=== PATIENT | female | born 1985 | race Caucasian/White ===

== ENCOUNTER 2019-09-06 13:28 | Emergency (ER) | payer OTHER, SELFPAY ==
--- NOTE | ~2019-09-06 | US_ITS ---
EXAMINATION: US venous doppler [facility] DATE: 09/06/2019 15:28 INDICATION: Left lower limb pain TECHNIQUE: Grayscale ultrasound images without and with compression and Doppler ultrasound images of the left lower extremity veins were obtained. COMPARISON: None. FINDINGS: There is thrombus within one of the paired left posterior tibial veins at the calf which is only part ially compressible. The second left posterior tibial vein is patent and compressible. The visualized portions of left common femoral vein, profunda (deep) femoral vein, femoral vein, popliteal vein, per kelley veins, gastrocnemius vein and greater saphenous vein outflow are patent. IMPRESSION: 1. [id number] deep venous thrombosis within one of the posterior tibial veins at the left calf. Reviewed, dictated and finalized at location A. IMPRESSION: 1. [id number] deep venous thrombosis within one of the posterior tibial ve ins at the left calf.
[2019-09-06 13:35] VITALS: BP 113/86; PULSE 85; RESP 18; TEMP 36.4; O2SAT 100
[2019-09-06 14:15] LABS: Basophils Absolute Auto 0.1 K/mm3 (0.0-0.1); Basophils Percent Auto 0.8 % (0.2-1.2); Eosinophils Absolute Auto 0.4 K/mm3 (0-0.3); Eosinophils Percent Auto 4.2 % (0-4.4); Hemoglobin 11.8 g/dL (12.0-15.0); Immature Granulocyte Absolute 0.03 K/mm3 (0.00-0.031); Immature Granulocyte Percent A 0.4 % (0-0.5); Lymphocytes Absolute Auto 2.94 K/mm3 (0.9-3.2); Lymphocytes Percent Auto 34.5 % (18.3-44.2); Mean Corpuscular HGB Conc 31.1 g/dl (32-36); Mean Corpuscular Hemoglobin 24.3 pg (26-34); Mean Corpuscular Volume 78.4 fl (80-100); Mean Platelet Volume 8.4 fl (7.4-10.4); Monocytes Absolute Auto 0.7 K/mm3 (0.1-0.6); Monocytes Percent Auto 8.5 % (2.6-8.5); Neutrophils Absolute Auto 4.4 K/mm3 (1.3-6.7); Neutrophils Percent Auto 51.6 % (45.5-73.1); Platelet Count Result 466 k/mm3 (150-375); Red Blood Count 4.85 M/mm3 (4.2-5.4); Red Cell Distribution Width 15.8 % (11.5-14.5); White Blood Count 8.5 K/mm3 (4.5-10.0)
[2019-09-06 14:28] LABS: Alanine Aminotransferase 26 U/L (4-35); Albumin Level 4.5 g/dL (3.5-5.1); Alkaline Phosphatase 102 U/L (38-126); Aspartate Amino Transferase 22 U/L (14-36); Bilirubin,Total 0.3 mg/dL (0.2-1.3); Blood Urea Nitrogen 17 mg/dL (7-17); Calcium 9.9 mg/dL (8.4-10.2); Carbon Dioxide 28 mmol/L (22-30); Chloride 100 mmol/L (98-107); Estimated CRCL calculation 121 ml/min; Estimated Glomerular Filt Rate > 60; Glucose 93 mg/dL (65-105); Potassium 4.4 mmol/L (3.4-5.0); Sodium 135 mmol/L (137-145)
--- NOTE | 2019-09-06 15:04 | ED.GENADULT ---
HPI - General Adult General Chief complaint: Extremity Injury, Lower <Javon Guillen PA-C - Last Filed: 09/06/19 16:14> Stated complaint: leg pain <STONEY Suazo Last Filed: 09/06/19 16:14> Time Seen by Provider: 09/06/19 13:35 <STONEY Suazo Last Filed: 09/06/19 16:14> History of Present Illness HPI narrative: Patient is a 34-year-old female who presents to emergency department for evaluation of left calf pain noting history of DVT states she has had the pain for approximately 1 month. Patient notes aching pain that is constant worse with activity and movement notes history significant for DVT has been using old Lovenox and had had an ultrasound ordered but did not ever get it patient denies chest pain dyspnea URI symptoms or other complaints and on arrival is in the room in no distress <Javon Guillen PA-C - Last Filed: 09/06/19 16:14> Related Data Home medications: Home Medications Medication Instructions Recorded Confirmed escitalopram oxalate mg 09/06/19 montelukast mg 09/06/19 <Javon Guillen PA-C - Last Filed: 09/06/19 16:14> Allergies/adverse reactions: Allergies Allergy/AdvReac Type Severity Reaction Status Date / Time shellfish derived Allergy Severe Swelling Verified 09/06/19 14:25 of Lip/Tongue/Throat shrimp Allergy Severe Anaphylactic Verified 09/06/19 14:25 Shock Penicillins Allergy Unknown Other Verified 09/06/19 14:25 <STONEY Suazo Last Filed: 09/06/19 16:14> Review of Systems Review of Systems: All systems reviewed & are unremarkable except as noted in HPI and below <STONEY Suazo Last Filed: 09/06/19 16:14> [facility] Past Medical History Medical History: Medical History Anxiety Asthma Blood clotting disorder Cholestasis DVT (deep venous thrombosis) Factor V deficiency Gestational diabetes HLD (hyperlipidemia) Miscarriage PCOS (polycystic ovarian syndrome) Ulcer <STONEY Suazo Last Filed: 09/06/19 16:14> Surgical History Surgical History: Surgical History History of salpingectomy <Javon Guillen PA-C - Last Filed: 09/06/19 16:14> Social History Social History: Social History Smoking status: Former smoker Smoking end date: 04/08/02 Alcohol intake: never Substance use: never Additional living arrangements comments: w/ 3 children 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 HEAD: Normocephalic, atraumatic. EYES: PERRLA and EOMI. ENT: Nares clear, no rhinorrhea or epistaxis. Mucous membranes moist. CHEST: Clear to auscultation. No respiratory distress. No wheezes rales or rhonchi HEART: Regular rate and rhythm. No murmur heard. Normal peripheral pulses. ABDOMEN: Soft, nontender, nondistended, EXTREMITIES: Normal range of motion. No edema. Tenderness of the left calf no deformities noted SKIN: Warm, dry, no rash. NEURO: No focal deficits. Alert and oriented x3. Neurovascularly intact. Capillary refill less than 2 seconds. PSYCH: Normal mood and affect. <Javon Guillen PA-C - Last Filed: 09/06/19 16:14> Course Course Emergency Course: Patient in the room in no distress aware of case findings treatment plan and diagnosis agreeing to follow-up as directed or to return if symptoms worsen or concerns <Javon Guillen PA-C - Last Filed: 09/06/19 16:14> Vital Signs Vital signs: Vital Signs Temperature 36.4 C L 09/06/19 13:35 Pulse Rate 85 09/06/19 13:35 Respiratory Rate 18 09/06/19 13:35 Blood Pressure 113/86 09/06/19 13:35 Pulse Oximetry 100 09/06/19
== END 2019-09-06 16:32 | disposition home or self-care (01) ==
PROVIDERS: Emergency Medicine Emergency Medical Services; Emergency Provider Emergency Medicine; PCP Physician Assistant
DX: I82.442 Acute embolism and thrombosis of left tibial vein (principal); F41.9 Anxiety disorder, unspecified; J45.909 Unspecified asthma, uncomplicated; Z86.718 Personal history of other venous thrombosis and embolism; D68.2 Hereditary deficiency of other clotting factors; E78.5 Hyperlipidemia, unspecified; E28.2 Polycystic ovarian syndrome; Z87.891 Personal history of nicotine dependence
CPT/HCPCS: 36415; 80053; 85025; 93971; 99284

== ENCOUNTER 2019-11-07 21:21 | Emergency (ER) | payer OTHER, SELFPAY ==
[2019-11-07 21:24] VITALS: BP 121/75; PULSE 96; RESP 18; TEMP 36.7; O2SAT 100
--- NOTE | 2019-11-07 22:01 | ED.ALLEREA ---
HPI - Allergic Reaction General Chief complaint: Allergic Reaction Stated complaint: FACIAL SWELLING Time Seen by Provider: 11/07/19 21:52 Source: RN notes reviewed History of Present Illness HPI narrative: Patient presents emergency department from home for allergic reaction. Patient states that she has been having intermittent welts showing up in different areas of her body over the past 3 weeks. She is being worked up by her PCP for this and was stopped on her Coumadin and started on Eliquis as a believe is possibly secondary to her Coumadin patient states that she is on loratadine nightly which she took tonight. Tonight she noted area over her left cheek and decided come in for further evaluation. She states the areas are pruritic she denies any swelling of the tongue shortness of breath chest pain or any other symptoms of concern Related Data Home Medications Medication Instructions Recorded Confirmed escitalopram oxalate mg 09/06/19 montelukast mg 09/06/19 apixaban [Eliquis] mg 11/07/19 Allergies Allergy/AdvReac Type Severity Reaction Status Date / Time shellfish derived Allergy Severe Swelling Verified 11/07/19 22:17 of Lip/Tongue/Throat shrimp Allergy Severe Anaphylactic Verified 11/07/19 22:17 Shock Penicillins Allergy Unknown Other Verified 11/07/19 22:17 warfarin Allergy Rash Verified 11/07/19 22:17 Review of Systems Review of Systems: Narrative: Gen.: Denies fevers or chills ENT: Denies congestion Respiratory: Denies shortness of breath or cough CV: Denies chest pain or palpitations GI: Denies abdominal pain nausea, emesis or diarrhea denies burning, urgency, frequency or hematuria Musculoskeletal: Denies back pain or muscle pain Neuro: Denies numbness, tingling, weakness or focal weakness Skin: Reports welts Except as documented, all other systems reviewed and negative [facility] Past Medical History Medical History Anxiety Asthma Blood clotting disorder Cholestasis DVT (deep venous thrombosis) Factor V deficiency Gestational diabetes HLD (hyperlipidemia) Miscarriage PCOS (polycystic ovarian syndrome) Ulcer Social History Social History Smoking status: Former smoker Smoking end date: 04/08/02 Alcohol intake: never Substance use: never Additional living arrangements comments: w/ 3 children 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 CARDIOVASCULAR: Regular rate and rhythm without murmurs rubs or gallops. ABDOMINAL: Soft, nontender, nondistended, no rebound or guarding MUSCULOSKELETAl: Moves all extremities. No clubbing, cyanosis or edema. NEURO: Awake and alert. Following commands, speech normal, no focal deficits SKIN:: Warm, dry. Area urticaria over the left cheek PSYCHIATRIC: Normal affect/mood, Course Course Emergency Course: Patient symptoms are improved with steroids Discussed with patient results of workup and diagnosis. Discussed need for follow-up with primary care, proper use of medication, and reasons to return to the emergency department. Patient understands and agrees to current treatment plan Vital Signs Vital signs: Vital Signs Temperature 98.1 F 11/07/19 21:24 Pulse Rate 96 11/07/19 21:24 Respiratory Rate 18 11/07/19 21:24 Blood Pressure 121/75 11/07/19 21:24 Pulse Oximetry 100 11/07/19 21:24 Temperature 97.8 F 11/07/19 22:19 Pulse Rate 85 11/07/19 22:19 Respiratory Rate 16 11/07/19 22:19 Blood Pressure 122/75 11/07/19 22:19 Pulse Oximetry 98 11/07/19 22:19 MDM - Allergic R
[2019-11-07 22:19] VITALS: BP 122/75; PULSE 85; RESP 16; TEMP 36.6; O2SAT 98
[2019-11-07] MEDS: FAMOTIDINE 20 MG TABLET PO (22:25)
[2019-11-07] MEDS: predniSONE 20 MG TABLET 60 MG PO (22:25)
[2019-11-07 22:43] LABS: Basophils Absolute Auto 0.1 K/mm3 (0.0-0.1); Basophils Percent Auto 0.5 % (0.2-1.2); Eosinophils Absolute Auto 0.3 K/mm3 (0-0.3); Eosinophils Percent Auto 2.9 % (0-4.4); Hematocrit 32.6 % (37.0-47.0); Hemoglobin 10.5 g/dL (12.0-15.0); Immature Granulocyte Absolute 0.07 K/mm3 (0.00-0.031); Immature Granulocyte Percent A 0.6 % (0-0.5); Lymphocytes Absolute Auto 3.64 K/mm3 (0.9-3.2); Lymphocytes Percent Auto 31.6 % (18.3-44.2); Mean Corpuscular HGB Conc 32.2 g/dl (32-36); Mean Corpuscular Hemoglobin 25.9 pg (26-34); Mean Corpuscular Volume 80.3 fl (80-100); Mean Platelet Volume 8.4 fl (7.4-10.4); Monocytes Absolute Auto 0.8 K/mm3 (0.1-0.6); Monocytes Percent Auto 6.6 % (2.6-8.5); Neutrophils Absolute Auto 6.7 K/mm3 (1.3-6.7); Neutrophils Percent Auto 57.8 % (45.5-73.1); Platelet Count Result 484 k/mm3 (150-375); Red Blood Count 4.06 M/mm3 (4.2-5.4); Red Cell Distribution Width 15.9 % (11.5-14.5); White Blood Count 11.5 K/mm3 (4.5-10.0)
[2019-11-07 22:54] LABS: Alanine Aminotransferase 18 U/L (4-35); Albumin Level 4.3 g/dL (3.5-5.1); Alkaline Phosphatase 107 U/L (38-126); Anion Gap 12.7 mmol/L (7-16); Aspartate Amino Transferase 17 U/L (14-36); Bilirubin,Total 0.1 mg/dL (0.2-1.3); Blood Urea Nitrogen 14 mg/dL (7-17); Calcium 8.9 mg/dL (8.4-10.2); Carbon Dioxide 27 mmol/L (22-30); Chloride 100 mmol/L (98-107); Estimated CRCL calculation 102 ml/min; Estimated Glomerular Filt Rate > 60; Glucose 99 mg/dL (65-105); Potassium 3.7 mmol/L (3.4-5.0); Sodium 136 mmol/L (137-145)
[2019-11-07 23:21] VITALS: BP 119/71; PULSE 74; RESP 19; TEMP 36.8; O2SAT 100
== END 2019-11-07 23:22 | disposition home or self-care (01) ==
PROVIDERS: Emergency Provider Emergency Medicine; PCP Physician Assistant
DX: T78.40XA Allergy, unspecified, initial encounter (principal); Z79.01 Long term (current) use of anticoagulants; J45.909 Unspecified asthma, uncomplicated; F41.9 Anxiety disorder, unspecified; Z86.718 Personal history of other venous thrombosis and embolism; D68.51 Activated protein C resistance; E78.5 Hyperlipidemia, unspecified; E28.2 Polycystic ovarian syndrome; Z87.891 Personal history of nicotine dependence
CPT/HCPCS: 36415; 80053; 85025; 99283; A9270; J7512

== ENCOUNTER 2019-11-17 22:39 | Emergency (ER) | payer OTHER, SELFPAY ==
[2019-11-17 22:45] VITALS: BP 118/81; PULSE 94; RESP 18; TEMP 36.4; O2SAT 99
--- NOTE | 2019-11-17 22:59 | ED.ALLEREA ---
HPI - Allergic Reaction General Chief complaint: Allergic Reaction Stated complaint: allergic reaction x1 week Time Seen by Provider: 11/17/19 22:44 History of Present Illness HPI narrative: She has been having reccurent urticaria for the past week. She has been treating it with pepcid prednisone and zyrtec. This had been effective until tonight. Tonight she took those medications which helped with the rash, but she began developing swelling of the lower lip, which did not respond. No swelling of the throat or palate. She has beeing seeing her PCP and HemeOnc. She does not know what is causing these reactions. Related Data Home Medications Medication Instructions Recorded Confirmed escitalopram oxalate mg 09/06/19 montelukast mg 09/06/19 apixaban [Eliquis] mg 11/07/19 Allergies Allergy/AdvReac Type Severity Reaction Status Date / Time shellfish derived Allergy Severe Swelling Verified 11/17/19 22:53 of Lip/Tongue/Throat shrimp Allergy Severe Anaphylactic Verified 11/17/19 22:53 Shock Penicillins Allergy Unknown Other Verified 11/17/19 22:53 warfarin Allergy Rash Verified 11/17/19 22:53 Review of Systems Review of Systems: All systems reviewed & are unremarkable except as noted in HPI and below Constitutional: Constitutional: Denies fever(s) Cardiovascular: Cardiovascular: Denies chest pain Respiratory: Respiratory: Denies dyspnea Gastrointestinal: Gastrointestinal: Denies abdominal pain and Denies nausea [facility] Social History Social History Smoking status: Former smoker Smoking end date: 04/08/02 Alcohol intake: never Substance use: never Additional living arrangements comments: w/ 3 children 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 Eyes: Pupils: Equal, round and reactive pupils present Neck: Neck: normal visual inspection and no lymphadenopathy Chest: Chest palpation & inspection: no tenderness Resp: Effort & Inspection: normal respiratory effort Auscultation: clear to auscultation bilaterally, no rales, no rhonchi and no wheezes Cardio: Jugular venous distension: no JVD Rate: regular rate Rhythm: regular rhythm Heart sounds: no murmurs GI: Inspection: non-distended GI Palp: Yes Soft to palpation and No Tenderness to palpation present (GI) Skin: General skin exam: normal color Neuro: General: patient oriented x3 and moves all extremities Speech: normal speech Extrem: General: no edema Psych: Appearance: well kempt Affect: normal affect Course Vital Signs Vital signs: Vital Signs Temperature 36.4 C 11/17/19 22:45 Pulse Rate 94 11/17/19 22:45 Respiratory Rate 18 11/17/19 22:45 Blood Pressure 118/81 11/17/19 22:45 Pulse Oximetry 99 11/17/19 22:45 Temperature 36.4 C 11/17/19 22:45 Pulse Rate 104 H 11/18/19 02:29 Respiratory Rate 20 11/18/19 02:29 Blood Pressure 128/83 11/18/19 02:29 Pulse Oximetry 100 11/18/19 02:29 MDM - Allergic Reaction MDM Narrative Medical decision making narrative: After 2 doses of epi and 50 mg benadryl her swelling had resolved. Medical Records Attestation: I reviewed the patient's medical records. Discharge Plan Discharge Clinical Impression: Allergic reaction Qualifiers: Encounter type: initial encounter Qualified Code(s): T78.40XA - Allergy, unspecified, initial encounter Patient Disposition: Home, Self-Care Condition: Stable Instructions: Allergies (ED) Prescriptions: No Action Eliquis 5 mg tablet RF: 0 famotidine [Pepcid] 20 mg tablet 20 mg PO DAILY
[2019-11-17] MEDS: diphenhydrAMINE HCl CAP 25 MG CAPSULE 50 MG PO (23:18)
[2019-11-17] MEDS: EPINEPHrine HCL INJ 1 MG/ML AMPUL 0.3 MG IM (23:19)
[2019-11-18 00:01] VITALS: BP 149/82; PULSE 102; RESP 12; O2SAT 94
[2019-11-18] MEDS: EPINEPHrine HCL INJ 1 MG/ML AMPUL 0.3 MG IM (00:30)
[2019-11-18 01:47] VITALS: BP 112/71; PULSE 101; RESP 16; O2SAT 98
[2019-11-18 02:29] VITALS: BP 128/83; PULSE 104; RESP 20; O2SAT 100
== END 2019-11-18 02:33 | disposition home or self-care (01) ==
PROVIDERS: Emergency Provider Emergency Medicine; PCP Physician Assistant
DX: T78.40XA Allergy, unspecified, initial encounter (principal); Z87.891 Personal history of nicotine dependence; Z79.01 Long term (current) use of anticoagulants; F41.9 Anxiety disorder, unspecified; Z86.718 Personal history of other venous thrombosis and embolism; E28.2 Polycystic ovarian syndrome; D68.2 Hereditary deficiency of other clotting factors
CPT/HCPCS: 96372; 99284; A9270; J0171

== ENCOUNTER 2020-01-14 11:06 | Emergency (ER) | payer OTHER, SELFPAY ==
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
[2020-01-14 11:12] VITALS: BP 103/84; PULSE 95; RESP 20; TEMP 36.6; O2SAT 99
[2020-01-14 12:29] LABS: Basophils Absolute Auto 0.1 K/mm3 (0.0-0.1); Basophils Percent Auto 0.6 % (0.2-1.2); Eosinophils Absolute Auto 0.4 K/mm3 (0-0.3); Eosinophils Percent Auto 3.3 % (0-4.4); Hematocrit 34.3 % (37.0-47.0); Hemoglobin 10.8 g/dL (12.0-15.0); Immature Granulocyte Absolute 0.04 K/mm3 (0.00-0.031); Immature Granulocyte Percent A 0.4 % (0-0.5); Lymphocytes Absolute Auto 2.71 K/mm3 (0.9-3.2); Lymphocytes Percent Auto 25.9 % (18.3-44.2); Mean Corpuscular HGB Conc 31.5 g/dl (32-36); Mean Corpuscular Volume 82.7 fl (80-100); Mean Platelet Volume 8.6 fl (7.4-10.4); Monocytes Absolute Auto 0.9 K/mm3 (0.1-0.6); Monocytes Percent Auto 8.3 % (2.6-8.5); Neutrophils Absolute Auto 6.4 K/mm3 (1.3-6.7); Neutrophils Percent Auto 61.5 % (45.5-73.1); Platelet Count Result 414 k/mm3 (150-375); Red Blood Count 4.15 M/mm3 (4.2-5.4); Red Cell Distribution Width 15.2 % (11.5-14.5); White Blood Count 10.5 K/mm3 (4.5-10.0)
[2020-01-14 12:38] LABS: Alanine Aminotransferase 14 U/L (4-35); Albumin Level 4.1 g/dL (3.5-5.1); Alkaline Phosphatase 100 U/L (38-126); Anion Gap 8 mmol/L (8-16); Aspartate Amino Transferase 15 U/L (14-36); Bilirubin,Total 0.3 mg/dL (0.2-1.3); Blood Urea Nitrogen 13 mg/dL (7-17); Calcium 9.4 mg/dL (8.4-10.2); Carbon Dioxide 29 mmol/L (22-30); Chloride 102 mmol/L (98-107); Estimated CRCL calculation 106 ml/min; Estimated Glomerular Filt Rate > 60; Glucose 90 mg/dL (65-105); Potassium 4.2 mmol/L (3.4-5.0); Sodium 139 mmol/L (137-145)
[2020-01-14 12:38] LABS: Add Urine Microscopic? YES; Appearance Urine Cloudy (Clear); Bilirubin Urine Negative (Negative); Blood Urine Negative (Negative); Color Urine Yellow (Yellow); Glucose Urine UA Negative (Negative); Ketones Urine Negative (Negative); Leukocyte Esterase Ur Trace LEU/UL (Negative); Mucus Urine Few /lpf; Nitrate Urine Negative (Negative); Protein Urine Negative (Negative); Specific Grav Ur 1.027 (1.001-1.035); Squamous Epithelial Cell Urine Many /hpf (Few); Urobilinogen Urine Negative mg/dL (<2.0)
[2020-01-14 13:17] VITALS: BP 120/73; PULSE 65; RESP 18; O2SAT 99
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
[2020-01-14 14:20] VITALS: BP 132/70; PULSE 60; RESP 18; O2SAT 99
== END 2020-01-14 14:22 | disposition home or self-care (01) ==
PROVIDERS: Physician Assistant; Emergency Provider General Practice; PCP Physician Assistant
DX: S39.011A Strain of muscle, fascia and tendon of abdomen, initial encounter (principal); Z79.01 Long term (current) use of anticoagulants; F41.9 Anxiety disorder, unspecified; J45.909 Unspecified asthma, uncomplicated; Z86.718 Personal history of other venous thrombosis and embolism; D68.2 Hereditary deficiency of other clotting factors; E78.5 Hyperlipidemia, unspecified; E28.2 Polycystic ovarian syndrome; Z87.891 Personal history of nicotine dependence; V43.52XA Car driver injured in collision with other type car in traffic accident, initial encounter
CPT/HCPCS: 36415; 74177; 80053; 81001; 81025; 85025; 99284; Q9967

== ENCOUNTER 2020-08-13 21:44 | Emergency (ER) | payer OTHER, SELFPAY ==
[2020-08-13] VITALS (11 sets, daily range): BP systolic 132–150; BP diastolic 76–90; PULSE 81–105; RESP 15–30; TEMP 36.4; O2SAT 97–100
--- NOTE | 2020-08-13 22:06 | ED.ASTHMA ---
HPI - Asthma General Chief Complaint: Asthma Stated Complaint: sob for last hour Time Seen by Provider: 08/13/20 21:52 Source: patient, family and RN notes reviewed Mode of arrival: ambulatory Limitations: no limitations History of Present Illness HPI Narrative: Patient is 35 years old white female presents to the ED with shortness of breath on exertion after losing her albuterol inhaler 5 hours ago. History of asthma, on albuterol inhaler almost daily, lost to her inhaler 4-hour prior to arrival to the emergency room. Patient denies any chest pain, lightheadedness or dizziness. Patient had COVID-19 infection and been vaccinated few weeks ago. Patient denies any fever, chills, nausea, vomiting Related Data Home Medications Medication Instructions Recorded Confirmed escitalopram oxalate mg 09/06/19 montelukast mg 09/06/19 apixaban [Eliquis] mg 11/07/19 Allergies Allergy/AdvReac Type Severity Reaction Status Date / Time shellfish derived Allergy Severe Swelling Verified 08/13/20 22:04 of Lip/Tongue/Throat shrimp Allergy Severe Anaphylactic Verified 08/13/20 22:04 Shock Penicillins Allergy Unknown Other Verified 08/13/20 22:04 warfarin Allergy Rash Verified 08/13/20 22:04 [facility] Past Medical History Medical History (Updated 08/13/20 @ 23:15 by Estella Boss MD) Anxiety Asthma Blood clotting disorder Cholestasis DVT (deep venous thrombosis) Factor V deficiency Gestational diabetes HLD (hyperlipidemia) Miscarriage PCOS (polycystic ovarian syndrome) Ulcer Surgical History Surgical History History of salpingectomy Family History Family History Mother Hypertension Sibling Patient's brother is in good health Social History Social History Smoking status: Former smoker Smoking end date: 04/08/02 Alcohol intake: never Substance use: never Additional living arrangements comments: w/ 3 children 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- [employer] Gender identity (if verbalized by the patient): Female Exam Narrative: Exam Narrative: General appearance: Well-developed, well-nourished Skin: Normal color Head: Normocephalic, nontraumatic Eyes: Clear conjunctiva ENT: Oropharynx normal, ears normal, nose normal Neck: Supple, nontender Chest and respiratory: Few scattered wheezing bilaterally mainly on the left side Heart: Regular rate/rhythm Musculoskeletal: Normal range of motion, nontender back Neurologic: Alert and oriented ?3, [employer] is normal as tested, no gross motor deficit Course Course Emergency Course: Improved Vital Signs Vital signs: Vital Signs Temperature 36.4 C 08/13/20 21:46 Pulse Rate 88 08/13/20 21:46 Respiratory Rate 20 08/13/20 21:46 Blood Pressure 132/79 08/13/20 21:46 Pulse Oximetry 100 08/13/20 21:46 Temperature 36.4 C 08/13/20 21:46 Pulse Rate 99 08/13/20 22:01 Respiratory Rate 16 08/13/20 22:01 Blood Pressure 142/83 H 08/13/20 22:01 Pulse Oximetry 100 08/13/20 22:01 MDM - Asthma MDM Narrative Medical decision making narrative: Patient presents with exacerbation of asthma, because he lost her albuterol inhaler. Differential Diagnosis Differential diagnosis: Likely Acute exacerbation Critical Care Time Critical Care Time Critical Care Time: Yes Total Critical Care Time: 30 Discharge Plan Discharge Clinical Impression: Asthma with acute exacerbation Qualifiers: Asthma severity: mild Asthma persistence: intermittent Qualified Code(s
[2020-08-13] MEDS: predniSONE 20 MG TABLET 60 MG PO (22:09)
[2020-08-13] MEDS: ALBUTEROL SULFATE NEB 2.5 MG/0.5 ML INH 10 MG INHALATION (22:14)
--- NOTE | 2020-08-13 23:05 | PCRCNOTE ---
480 predicted Peak Flow pre bronchodilator treatment Peak flow: 180 post Peak flow: 300
== END 2020-08-13 23:23 | disposition home or self-care (01) ==
PROVIDERS: Emergency Provider Emergency Medicine; PCP Physician Assistant
DX: J45.21 Mild intermittent asthma with (acute) exacerbation (principal); F41.9 Anxiety disorder, unspecified; Z86.718 Personal history of other venous thrombosis and embolism; D68.2 Hereditary deficiency of other clotting factors; E78.5 Hyperlipidemia, unspecified; E28.2 Polycystic ovarian syndrome; Z86.16 Personal history of COVID-19; Z87.891 Personal history of nicotine dependence
CPT/HCPCS: 99283; J7512

== ENCOUNTER 2020-12-18 14:21 | Emergency (ER) | payer OTHER, SELFPAY ==
--- NOTE | ~2020-12-18 | CT_ITS ---
EXAMINATION: CT abdomen pelvis wo con DATE: 12/18/2020 15:56 INDICATION: Left flank pain TECHNIQUE: Computed tomography (CT) of the abdomen and pelvis was performed without intravenous contr ast. The dose-length product was 312.11 mGy-cm. Automated exposure control and iterative reconstructi on technique were employed. COMPARISON: CT dated 01/14/2020. FINDINGS: Lung bases are unremarkable. No significant pleural or pericardial effusion. Heart size nor mal. No significant vascular abnormality. No lymphadenopathy. The liver, spleen, pancreas, adrenal glands and left kidney are unremarkable. There are punctate nono bstructing right renal stones measuring 2 mm. No ureteral stones or hydronephrosis. Gallbladder is co ntracted. Nonobstructive bowel gas pattern. No free air or free fluid. Mild dextroscoliosis of the guille mbar spine. IMPRESSION: 1. No acute abdominal abnormality. Reviewed, dictated and finalized at location A.
[2020-12-18 14:23] VITALS: BP 127/70; PULSE 85; RESP 20; TEMP 36.9; O2SAT 100
[2020-12-18 15:29] LABS: Add Urine Microscopic? YES; Appearance Urine Clear (Clear); Bilirubin Urine Negative (Negative); Blood Urine Negative (Negative); Color Urine Yellow (Yellow); Glucose Urine UA Negative (Negative); Ketones Urine Negative (Negative); Leukocyte Esterase Ur Trace LEU/UL (Negative); Mucus Urine Rare /lpf; Nitrate Urine Negative (Negative); Protein Urine 1+ mg/dL (Negative); Specific Grav Ur 1.029 (1.001-1.035); Squamous Epithelial Cell Urine Moderate /hpf (Few); Urobilinogen Urine Negative mg/dL (<2.0); WBC Urine 0-3 /hpf
[2020-12-18] MEDS: KETOROLAC 15 MG/ML VIAL (*BKC) IV PUSH (15:46)
[2020-12-18 15:59] LABS: Basophils Absolute Auto 0.1 K/mm3 (0.0-0.1); Basophils Percent Auto 0.7 % (0.2-1.2); Eosinophils Absolute Auto 0.5 K/mm3 (0-0.3); Eosinophils Percent Auto 5.3 % (0-4.4); Hematocrit 33.6 % (37.0-47.0); Hemoglobin 10.4 g/dL (12.0-15.0); Immature Granulocyte Absolute 0.03 K/mm3 (0.00-0.031); Immature Granulocyte Percent A 0.3 % (0-0.5); Lymphocytes Absolute Auto 2.77 K/mm3 (0.9-3.2); Lymphocytes Percent Auto 31.8 % (18.3-44.2); Mean Corpuscular Hemoglobin 25.7 pg (26-34); Mean Platelet Volume 8.4 fl (7.4-10.4); Monocytes Absolute Auto 0.7 K/mm3 (0.1-0.6); Monocytes Percent Auto 7.5 % (2.6-8.5); Neutrophils Absolute Auto 4.8 K/mm3 (1.3-6.7); Neutrophils Percent Auto 54.4 % (45.5-73.1); Platelet Count Result 393 k/mm3 (150-375); Red Blood Count 4.05 M/mm3 (4.2-5.4); White Blood Count 8.7 K/mm3 (4.5-10.0)
[2020-12-18 16:09] LABS: Alanine Aminotransferase 24 U/L (4-35); Albumin Level 4.1 g/dL (3.5-5.1); Alkaline Phosphatase 94 U/L (38-126); Anion Gap 6 mmol/L (8-16); Aspartate Amino Transferase 24 U/L (14-36); Bilirubin,Total 0.2 mg/dL (0.2-1.3); Blood Urea Nitrogen 13 mg/dL (7-17); Carbon Dioxide 28 mmol/L (22-30); Chloride 104 mmol/L (98-107); Estimated CRCL calculation 108 ml/min; Estimated Glomerular Filt Rate > 60; Glucose 112 mg/dL (65-110); Potassium 3.8 mmol/L (3.4-5.0); Sodium 138 mmol/L (137-145)
--- NOTE | 2020-12-18 17:12 | ED.BACK ---
HPI - Back Pain/Injury General Chief Complaint: Back Pain/Injury Stated Complaint: back pain/sore throat Time Seen by Provider: 12/18/20 14:45 Source: patient Mode of arrival: ambulatory Limitations: no limitations History of Present Illness HPI Narrative: Patient presents with 2 to 3 days of left-sided back pain. Patient states that the other day she noticed urgency but does not have it today. Patient reports also noticing increased frequency. Patient states she has a history of UTIs. Patient also complains of a sore throat. Patient denies fever, chills, nausea, vomiting, diarrhea. Patient reports tubal ligation. Related Data Home Medications Medication Instructions Recorded Confirmed escitalopram oxalate 10 mg PO DAILY 09/06/19 apixaban [Eliquis] 5 mg PO BID 11/07/19 12/18/20 Allergies Allergy/AdvReac Type Severity Reaction Status Date / Time shellfish derived Allergy Severe Swelling Verified 12/18/20 14:27 of Lip/Tongue/Throat shrimp Allergy Severe Anaphylactic Verified 12/18/20 14:27 Shock Penicillins Allergy Unknown Other Verified 12/18/20 14:27 warfarin Allergy Rash Verified 12/18/20 14:27 Review of Systems Review of Systems: CONSTITUTIONAL: Denies fever, chills, or sweats. EYES: Denies visual changes, redness, or discharge. ENT: Reports sore throat denies rhinorrhea, congestion, or otalgia. CARDIOVASCULAR: Denies chest pain, palpitations, or edema. RESPIRATORY: Denies cough or dyspnea. GASTROINTESTINAL: Denies abdominal pain, nausea, vomiting, or diarrhea. GENITOURINARY: Denies dysuria or hematuria. SKIN: Denies rash or itching. MUSCULOSKELETAL: Reports left flank and left low back pain denies joint pain, or myalgia. NEUROLOGIC: Denies headache, numbness, dizziness, or weakness. PSYCHIATRIC: Denies anxiety or depression. [facility] Past Medical History Medical History (Updated 12/18/20 @ 16:34 by Hannah Alexis PA-C) Anxiety Asthma Blood clotting disorder Cholestasis DVT (deep venous thrombosis) Factor V deficiency Gestational diabetes HLD (hyperlipidemia) Miscarriage PCOS (polycystic ovarian syndrome) Ulcer Surgical History Surgical History History of salpingectomy Family History Family History Mother Hypertension Sibling Patient's brother is in good health Social History Social History Smoking status: Former smoker Smoking end date: 04/08/02 Alcohol intake: never Substance use: never Additional living arrangements comments: w/ 3 children 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 HEAD: Normocephalic, atraumatic. EYES: PERRLA and EOMI. ENT: Nares clear, no rhinorrhea or epistaxis. Mucous membranes moist. Oropharynx without tonsillar hypertrophy exudate or other lesions. Bilateral TMs pearly [place] nonbulging NECK: Supple. No adenopathy or masses. CHEST: Clear to auscultation. No respiratory distress. No wheezes rales or rhonchi. Left CVA tenderness with percussion HEART: Regular rate and rhythm. No murmur heard. Normal peripheral pulses. ABDOMEN: Soft, nontender, nondistended, normal active bowel sounds. EXTREMITIES: Normal range of motion. No edema. SKIN: Warm, dry, no rash. NEURO: No focal deficits. Alert and oriented x3. PSYCH: Normal mood and affect. Course Vital Signs Vital signs: Vital Signs Temperature 98.5 F 12/18/20 14:23 Pulse Rate 85 12/18/20 14:23 Respiratory Rate 12/18/20 14:23 Blood Pressure 127/70 12/18/20 14:23 Pulse Oximetry 100 12/18/20 14:23 Temperature 98.5 F 12/18/20 14:23 Pulse Rate 85 12/18/20 14:23 Respiratory Rate 20 12/18/20 14:23 Blood Pressure 127/7
[2020-12-18 17:45] VITALS: BP 123/80; PULSE 65; RESP 16; O2SAT 99
== END 2020-12-18 17:47 | disposition home or self-care (01) ==
PROVIDERS: Physician Assistant; Emergency Provider Emergency Medicine; PCP Physician Assistant
DX: S39.012A Strain of muscle, fascia and tendon of lower back, initial encounter (principal); F41.9 Anxiety disorder, unspecified; D68.51 Activated protein C resistance; E78.5 Hyperlipidemia, unspecified; E28.2 Polycystic ovarian syndrome; Z87.440 Personal history of urinary (tract) infections; Z98.51 Tubal ligation status; Z86.32 Personal history of gestational diabetes; Z87.09 Personal history of other diseases of the respiratory system; Z86.718 Personal history of other venous thrombosis and embolism; Z87.891 Personal history of nicotine dependence; Y33.XXXA Other specified events, undetermined intent, initial encounter
CPT/HCPCS: 36415; 74176; 80053; 81001; 81025; 85025; 87081; 87880; 96374; 99284; J1885

== ENCOUNTER 2021-08-23 09:32 | Emergency (ER) | payer OTHER, SELFPAY ==
[2021-08-23 09:51] VITALS: BP 140/83; PULSE 76; RESP 18; TEMP 36.2; O2SAT 100
--- NOTE | 2021-08-23 10:19 | ED.GENADULT ---
HPI - General Adult General Chief complaint: Unspecified Stated complaint: sore throat History of Present Illness HPI narrative: 36-year-old female presents the emergency room for evaluation of sore throat and left ear pain, which is been present intermittently for last 2 weeks. Patient states that she is frequently clearing her throat and has an occasional cough. Patient denies fever, malaise, body aches. Patient states he had a history of asthma and seasonal allergies. Reports taking Tylenol with no relief of symptoms. Related Data Home Medications Medication Instructions Recorded Confirmed escitalopram oxalate 10 mg PO DAILY 09/06/19 apixaban [Eliquis] 5 mg PO BID 11/07/19 12/18/20 Allergies Allergy/AdvReac Type Severity Reaction Status Date / Time shellfish derived Allergy Severe Swelling Verified 12/18/20 14:27 of Lip/Tongue/Throat shrimp Allergy Severe Anaphylactic Verified 12/18/20 14:27 Shock Penicillins Allergy Unknown Other Verified 12/18/20 14:27 warfarin Allergy Rash Verified 12/18/20 14:27 Review of Systems Review of Systems: CONSTITUTIONAL: Denies fever, chills, or sweats. EYES: Denies visual changes, redness, or discharge. ENT: Reports sinus congestion, postnasal drip, left ear pain, sore throat CARDIOVASCULAR: Denies chest pain, palpitations, or edema. RESPIRATORY: Denies cough or dyspnea. GASTROINTESTINAL: Denies abdominal pain, nausea, vomiting, or diarrhea. GENITOURINARY: Denies dysuria or hematuria. SKIN: Denies rash or itching. MUSCULOSKELETAL: Denies back pain, joint pain, or myalgia. NEUROLOGIC: Denies headache, numbness, dizziness, or weakness. PSYCHIATRIC: Denies anxiety or depression. [facility] Past Medical History Medical History (Updated 08/23/21 @ 10:30 by Shiva Villegas APRN) Anxiety Asthma Blood clotting disorder Cholestasis DVT (deep venous thrombosis) Factor V deficiency Gestational diabetes HLD (hyperlipidemia) Miscarriage PCOS (polycystic ovarian syndrome) Ulcer Surgical History Surgical History History of salpingectomy Family History Family History Mother Hypertension Sibling Patient's brother is in good health Social History Social History Smoking status: Former smoker Smoking end date: 04/08/02 Alcohol intake: never Substance use: never Additional living arrangements comments: w/ 3 children 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 HEAD: Normocephalic, atraumatic. EYES: PERRLA and EOMI. ENT: Nares clear, no rhinorrhea or epistaxis. Mucous membranes moist. Oropharynx without tonsillar hypertrophy exudate or other lesions. Bilateral TMs pearly alcala nonbulging with clear effusion NECK: Supple. No adenopathy or masses. No carotid bruits or JVD CHEST: Clear to auscultation. No respiratory distress. No wheezes rales or rhonchi HEART: Regular rate and rhythm. No murmur heard. Normal peripheral pulses. EXTREMITIES: Normal range of motion. No edema. SKIN: Warm, dry, no rash. NEURO: No focal deficits. Alert and oriented x3. PSYCH: Normal mood and affect. Course Vital Signs Vital signs: Vital Signs Temperature 36.2 C L 08/23/21 09:51 Pulse Rate 76 08/23/21 09:51 Respiratory Rate 18 08/23/21 09:51 Blood Pressure 140/83 08/23/21 09:51 Pulse Oximetry 100 08/23/21 09:51 Temperature 36.2 C L 08/23/21 09:51 Pulse Rate 76 08/23/21 09:51 Respiratory Rate 18 08/23/21 09:51 Blood Pressure 140/83 08/23/21 09:51 Pulse Oximetry 100 08/23/21 09:51 Medical Decision Making Vital Signs Vital Signs: Vital Signs Temperature 36.2 C L 08/23/21 09:51 Pulse Rate 76
== END 2021-08-23 10:47 | disposition home or self-care (01) ==
LOC: ANHED 10:31
PROVIDERS: Emergency Provider Nurse Practitioner Family; PCP Physician Assistant
DX: B34.9 Viral infection, unspecified (principal); E78.5 Hyperlipidemia, unspecified; Z79.01 Long term (current) use of anticoagulants; Z86.718 Personal history of other venous thrombosis and embolism; Z87.891 Personal history of nicotine dependence
CPT/HCPCS: 87081; 87880; 99283

== ENCOUNTER 2021-10-02 17:39 | Emergency (ER) | payer OTHER, SELFPAY ==
--- NOTE | ~2021-10-02 | US_ITS ---
EXAMINATION: US venous doppler LE RT DATE: 10/02/2021 19:04 INDICATION: Possible DVT . TECHNIQUE: Grayscale images without and with compression and Doppler images of the right lower extrem ity veins were obtained. COMPARISON: None FINDINGS: The right common femoral vein, profunda (deep) femoral vein, femoral vein, popliteal vein, peroneal v ein, posterior tibial veins, gastrocnemius vein, lesser saphenous, and greater saphenous vein are pat ent. IMPRESSION: 1. Patent right lower extremity veins. No evidence of deep venous thrombosis. Reviewed, dictated and finalized at location K.
--- NOTE | ~2021-10-02 | US_ITS ---
EXAMINATION: US venous doppler [facility] DATE: 10/02/2021 19:04 INDICATION: Pain in the left lower limb, possible DVT. TECHNIQUE: Grayscale images without and with compression and Doppler images of the left lower extremi ty veins were obtained. COMPARISON: None FINDINGS: The left common femoral vein, profunda femoral vein, femoral vein, popliteal vein, peroneal vein, pos terior tibial veins, gastrocnemius vein, lesser saphenous, and greater saphenous vein are patent. IMPRESSION: 1. Patent left lower extremity veins. No evidence of deep venous thrombosis. Reviewed, dictated and finalized at location K.
[2021-10-02 17:42] VITALS: BP 152/99; PULSE 103; RESP 18; TEMP 36.6; O2SAT 100
--- NOTE | 2021-10-02 19:33 | ED.LOWEXIN ---
HPI - Extremity Injury (Lower) General Chief Complaint: Extremity Injury, Lower Stated Complaint: Bilateral Leg Pain, US negative today Time Seen by Provider: 10/02/21 18:13 History of Present Illness HPI Narrative: 36-year-old female presented the emergency room for evaluation of bilateral calf pain. Patient states she has a history of DVTs, and is currently on Eliquis. Patient states that she was seen at an outside emergency room earlier today and had an ultrasound done of both legs and was found to be negative for DVT. Patient states that she presents here for a second opinion. Patient does endorse heavy use of soda, and does not drink sufficient amounts of water. Related Data Home Medications Medication Instructions Recorded Confirmed escitalopram oxalate 10 mg tablet 10 mg PO DAILY 09/06/19 apixaban 5 mg tablet (Eliquis) 5 mg PO BID 11/07/19 12/18/20 Allergies Allergy/AdvReac Type Severity Reaction Status Date / Time shellfish derived Allergy Severe Swelling Verified 10/02/21 17:44 of Lip/Tongue/Throat shrimp Allergy Severe Anaphylactic Verified 10/02/21 17:44 Shock Penicillins Allergy Unknown Other Verified 10/02/21 17:44 warfarin Allergy Rash Verified 10/02/21 17:44 Review of Systems Review of Systems: CONSTITUTIONAL: Denies fever, chills, or sweats. EYES: Denies visual changes, redness, or discharge. ENT: Denies rhinorrhea, congestion, sore throat, or otalgia. CARDIOVASCULAR: Denies chest pain, palpitations, or edema. RESPIRATORY: Denies cough or dyspnea. GASTROINTESTINAL: Denies abdominal pain, nausea, vomiting, or diarrhea. GENITOURINARY: Denies dysuria or hematuria. SKIN: Denies rash or itching. MUSCULOSKELETAL: Denies back pain, joint pain, or myalgia. NEUROLOGIC: Denies headache, numbness, dizziness, or weakness. PSYCHIATRIC: Denies anxiety or depression. [facility] Past Medical History Medical History (Updated 10/02/21 @ 19:39 by Shiva Villegas APRN) Anxiety Asthma Blood clotting disorder Cholestasis DVT (deep venous thrombosis) Factor V deficiency Gestational diabetes HLD (hyperlipidemia) Miscarriage PCOS (polycystic ovarian syndrome) Ulcer Surgical History Surgical History History of salpingectomy Family History Family History Mother Hypertension Sibling Patient's brother is in good health Social History Social History Smoking status: Former smoker Smoking end date: 04/08/02 Alcohol intake: never Substance use: never Additional living arrangements comments: w/ 3 children 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 HEAD: Normocephalic, atraumatic. EYES: Conjunctivae normal, PERRLA and EOMI. ENT: External nose normal, Nares clear, no rhinorrhea or epistaxis. Mucous membranes moist. Oropharynx without tonsillar hypertrophy exudate or other lesions. External ears normal, bilateral TMs normal bilaterally NECK: Supple. No meningeal signs. No adenopathy or masses. No carotid bruits or JVD CHEST: Clear to auscultation. No respiratory distress. No wheezes rales or rhonchi. No tenderness. HEART: Regular rate and rhythm. No murmur heard. Normal peripheral pulses. BACK: No CVA tenderness; No cervical/thoracic/lumbar tenderness, step-offs, bony abnormality; FROM EXTREMITIES: Tenderness noted to bilateral calfs with noted muscle spasms. Calves are equal bilaterally. No ecchymosis or cyanosis noted. Bilateral lower pulses are present and bounding. Negative Homans' sign bilaterally SKIN: Warm, dry, no rash. No noted wounds NEURO: No focal deficits. Alert and oriented x3. MAEW. CN's II-XI intact bilaterally, normal
== END 2021-10-02 20:25 | disposition home or self-care (01) ==
PROVIDERS: Emergency Provider Nurse Practitioner Family; PCP Physician Assistant
DX: S86.919A Strain of unspecified muscle(s) and tendon(s) at lower leg level, unspecified leg, initial encounter (principal); J45.909 Unspecified asthma, uncomplicated; D68.2 Hereditary deficiency of other clotting factors; E78.5 Hyperlipidemia, unspecified; E28.2 Polycystic ovarian syndrome; F41.9 Anxiety disorder, unspecified; Z86.718 Personal history of other venous thrombosis and embolism; Z79.01 Long term (current) use of anticoagulants; Z87.891 Personal history of nicotine dependence; X58.XXXA Exposure to other specified factors, initial encounter
CPT/HCPCS: 93971; 99284

== ENCOUNTER 2021-11-10 08:59 | Emergency (ER) | payer OTHER, SELFPAY ==
--- NOTE | ~2021-11-10 | CT_ITS ---
EXAMINATION: CT soft tissue neck w con DATE: 11/10/2021 10:01 INDICATION: Throat pain. Hoarseness. TECHNIQUE: Computed tomography (CT) of the neck was performed with 75 mL Omnipaque-350 intravenous co ntrast. Automated exposure control and iterative reconstruction technique were employed. The dose-maciej gth product was 500.69 mGy-cm. COMPARISON: None FINDINGS: The adenoids are normal. There is mild enlargement of the palatine tonsils. The epiglottis is normal. There are no pathologically enlarged lymph nodes. There is mild cervical spondylosis. IMPRESSION: 1. Mild enlargement of the palatine tonsils. No abscess. Reviewed, dictated and finalized at location A.
[2021-11-10 09:05] VITALS: BP 151/91; PULSE 96; RESP 16; TEMP 36.6; O2SAT 98
[2021-11-10 09:32] LABS: Basophils Absolute Auto 0.1 K/mm3 (0.0-0.1); Basophils Percent Auto 0.6 % (0.2-1.2); Eosinophils Absolute Auto 0.3 K/mm3 (0-0.3); Eosinophils Percent Auto 2.7 % (0-4.4); Hematocrit 35.1 % (37.0-47.0); Hemoglobin 10.9 g/dL (12.0-15.0); Immature Granulocyte Absolute 0.03 K/mm3 (0.00-0.031); Immature Granulocyte Percent A 0.3 % (0-0.5); Lymphocytes Absolute Auto 2.61 K/mm3 (0.9-3.2); Lymphocytes Percent Auto 25.3 % (18.3-44.2); Mean Corpuscular HGB Conc 31.1 g/dl (32-36); Mean Corpuscular Hemoglobin 25.9 pg (26-34); Mean Corpuscular Volume 83.4 fl (80-100); Mean Platelet Volume 8.3 fl (7.4-10.4); Monocytes Absolute Auto 0.7 K/mm3 (0.1-0.6); Monocytes Percent Auto 6.3 % (2.6-8.5); Neutrophils Absolute Auto 6.7 K/mm3 (1.3-6.7); Neutrophils Percent Auto 64.8 % (45.5-73.1); Platelet Count Result 442 k/mm3 (150-375); Red Blood Count 4.21 M/mm3 (4.2-5.4); Red Cell Distribution Width 16.3 % (11.5-14.5); White Blood Count 10.3 K/mm3 (4.5-10.0)
[2021-11-10 09:44] LABS: Alanine Aminotransferase 36 U/L (6-35); Albumin Level 4.6 g/dL (3.5-5.1); Alkaline Phosphatase 96 U/L (38-126); Anion Gap 13 mmol/L (8-16); Aspartate Amino Transferase 25 U/L (14-36); Bilirubin,Total 0.6 mg/dL (0.2-1.3); Blood Urea Nitrogen 6 mg/dL (7-17); Calcium 8.8 mg/dL (8.4-10.2); Carbon Dioxide 23 mmol/L (22-30); Chloride 102 mmol/L (98-107); Estimated CRCL calculation 105 ml/min; Estimated Glomerular Filt Rate > 60; Glucose 138 mg/dL (65-110); Potassium 3.6 mmol/L (3.4-5.0); Sodium 138 mmol/L (137-145)
--- NOTE | 2021-11-10 09:54 | PC.NURSE ---
Pt to CT scan in wheelchair.
--- NOTE | 2021-11-10 10:47 | ED.GENADULT ---
HPI - General Adult General Chief complaint: Dental/Oral Stated complaint: hoarse voice x 2months Time Seen by Provider: 11/10/21 09:01 Source: RN notes reviewed History of Present Illness HPI narrative: Patient presents emergency room from home for hoarse voice. Patient states symptoms been ongoing for 3 to 4 months. She states that 1 morning she woke up with a hoarse voice she states that she is able to swallow she denies any fevers or chills rhinorrhea states that time she will have ear pain but denies any current ear pain she denies any pain with swallowing denies any chest pain or shortness of breath. States has been to her PCP and has been on steroids in the past and that does help briefly and then returns states that she is try to get into an ENT but cannot get in until January she states there is concerned that there could be polyps in her throat after talking to her PCP and she came to the ER for CT scan of her neck Related Data Home Medications Medication Instructions Recorded Confirmed escitalopram oxalate 10 mg tablet 10 mg PO DAILY 09/06/19 apixaban 5 mg tablet (Eliquis) 5 mg PO BID 11/07/19 12/18/20 Allergies Allergy/AdvReac Type Severity Reaction Status Date / Time shellfish derived Allergy Severe Swelling Verified 10/02/21 17:44 of Lip/Tongue/Throat shrimp Allergy Severe Anaphylactic Verified 10/02/21 17:44 Shock Penicillins Allergy Unknown Other Verified 10/02/21 17:44 warfarin Allergy Rash Verified 10/02/21 17:44 Review of Systems Review of Systems: Gen.: Denies fevers or chills ENT: D see HPI Respiratory: Denies shortness of breath or cough CV: Denies chest pain or palpitations GI: Denies abdominal pain nausea, emesis Musculoskeletal: Denies back pain or muscle pain Neuro: Denies numbness, tingling, weakness or focal weakness Skin: Denies rash Except as documented, all other systems reviewed and negative [facility] Past Medical History Medical History (Updated 11/10/21 @ 10:50 by Be Burkett DO) Anxiety Asthma Blood clotting disorder Cholestasis DVT (deep venous thrombosis) Factor V deficiency Gestational diabetes HLD (hyperlipidemia) Miscarriage PCOS (polycystic ovarian syndrome) Ulcer Surgical History Surgical History History of salpingectomy Family History Family History Mother Hypertension Sibling Patient's brother is in good health Social History Social History Smoking status: Former smoker Smoking end date: 04/08/02 Alcohol intake: never Substance use: never Additional living arrangements comments: w/ 3 children 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 CARDIOVASCULAR: Regular rate and rhythm without murmurs rubs or gallops. ABDOMINAL: Soft, nontender, nondistended, no rebound or guarding MUSCULOSKELETAl: Moves all extremities. No clubbing, cyanosis or edema. NEURO: Awake and alert. Following commands, speech normal, no focal deficits SKIN:: Warm, dry. No rashes lesions or abrasions PSYCHIATRIC: Normal affect/mood, Course Course Emergency Course: Discussed with patient results of workup and diagnosis. Discussed need for follow-up with primary care, proper use of medication, and reasons to return to the emergency department. Patient understands and agrees to current treatment plan discuss
[2021-11-10 10:57] VITALS: BP 140/87; PULSE 91; RESP 17; O2SAT 100
== END 2021-11-10 10:59 | disposition home or self-care (01) ==
PROVIDERS: Emergency Provider Emergency Medicine; PCP Physician Assistant
DX: J04.0 Acute laryngitis (principal); J45.909 Unspecified asthma, uncomplicated; D68.2 Hereditary deficiency of other clotting factors; E78.5 Hyperlipidemia, unspecified; E28.2 Polycystic ovarian syndrome; F41.9 Anxiety disorder, unspecified; Z86.718 Personal history of other venous thrombosis and embolism; Z79.01 Long term (current) use of anticoagulants; Z87.891 Personal history of nicotine dependence
CPT/HCPCS: 36415; 70491; 80053; 85025; 87081; 87880; 99284; Q9967

== ENCOUNTER 2022-03-04 19:26 | Emergency (ER) | payer OTHER, SELFPAY ==
--- NOTE | ~2022-03-04 | XR_ITS ---
EXAMINATION: XR chest 2V Exam Date/Time: 03/04/2022 20:10 [facility]MER HISTORY: sob X TODAY, HX ASTHMA Comparison: 05/13/2014. RESULT: Lines, tubes, and devices: None. Lungs and pleura: Clear. Cardiomediastinal silhouette: Stable. Other: No acute osseous or upper abdominal finding. IMPRESSION: No acute cardiopulmonary process. Reviewed, dictated and finalized at location K. NG TRIMMER
[2022-03-04 19:29] VITALS: BP 154/91; PULSE 92; RESP 20; TEMP 36.9; O2SAT 100
[2022-03-04 19:55] VITALS: O2SAT 99
--- NOTE | 2022-03-04 19:58 | ED.ASTHMA ---
HPI - Asthma General Chief Complaint: Asthma Stated Complaint: short of breath, asthma Time Seen by Provider: 03/04/22 19:46 Source: patient, RN notes reviewed and old records reviewed Mode of arrival: ambulatory Limitations: no limitations History of Present Illness HPI Narrative: This is a 36 year old female with history of asthma who presents for evaluation of asthma exacerbation. She states her asthma has been bothering her for 1 month, and she has been using her albuterol inhaler twice a day. She reports she ran out of her inhaler 4 hours ago, and she was doing fine prior. She is short of breath and she needs another albuterol inhaler. She denies worsening cough, fever, chest pain, leg swelling, calf pain. She has been around children with cold symptoms. She has been taking her eliquis as prescribed but she took her last dose of eliquis this morning. She was unable to make it to pharmacy before it closed to hand picker her refill, and she will need to take her night time dose. Related Data Home Medications Medication Instructions Recorded Confirmed escitalopram oxalate 10 mg tablet 10 mg PO DAILY 09/06/19 apixaban 5 mg tablet (Eliquis) 5 mg PO BID 11/07/19 12/18/20 Allergies Allergy/AdvReac Type Severity Reaction Status Date / Time shellfish derived Allergy Severe Swelling Verified 03/04/22 19:57 of Lip/Tongue/Throat shrimp Allergy Severe Anaphylactic Verified 03/04/22 19:57 Shock Penicillins Allergy Unknown Other Verified 03/04/22 19:57 warfarin Allergy Rash Verified 03/04/22 19:57 Review of Systems Review of Systems: All systems reviewed & are unremarkable except as noted in HPI and below Constitutional: Constitutional: Denies chills and Denies fatigue ENT: Denies nasal congestion and Denies sore throat Cardiovascular: Cardiovascular: Denies chest pain, Denies rapid heart rate and Denies radiating jaw, neck or arm pain Respiratory: Respiratory: Denies chest congestion, Denies cough and Reports wheezing Gastrointestinal: Gastrointestinal: Denies abdominal pain, Denies nausea and Denies vomiting [facility] Past Medical History Medical History (Updated 03/04/22 @ 22:08 by Chelle Harley MD) Anxiety Asthma Blood clotting disorder Cholestasis DVT (deep venous thrombosis) Factor V deficiency Gestational diabetes HLD (hyperlipidemia) Miscarriage PCOS (polycystic ovarian syndrome) Ulcer Surgical History Surgical History History of salpingectomy Family History Family History Mother Hypertension Sibling Patient's brother is in good health Social History Social History Smoking status: Former smoker Smoking end date: 04/08/02 Alcohol intake: never Substance use: never Additional living arrangements comments: w/ 3 children 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- [employer] Gender identity (if verbalized by the patient): Female Exam Const: General: no acute distress and alert Nutritional Appearance: well nourished Orientation/consciousness: patient oriented x3 Limitations: no limitations HENMT: Head: normal to inspection Eyes: EOM: EOMs intact bilaterally Chest: Chest palpation & inspection: normal inspection of the chest Resp: Effort & Inspection: normal respiratory effort, no retractions and no use of accessory muscles Auscultation: wheezes Cardio: Rate: regular rate Rhythm: regular rhythm Heart sounds: no murmurs GI: GI Palp: Yes Soft to palpation, No Tenderness to palpation present (GI) and No Guarding due to palpation present (GI) Auscultation: normal bowel sounds Skin: General skin exam: normal color Lesions: no lesions Wounds: no wounds Neuro: General: patient oriented x3, moves all extremities and CN's II-XI intact bilaterally Extrem: General: normal to inspecti
[2022-03-04] MEDS: predniSONE 20 MG TABLET 60 MG PO (20:25)
[2022-03-04] MEDS: APIXABAN 5 MG TABLET PO (20:26)
[2022-03-04 20:54] LABS: Influenza A QL RT-PCR Negative (Negative); Influenza B QL RT-PCR Negative (Negative); RSV RNA, RT-PCR Negative (Negative); SARS-CoV-2 RNA PCR Negative
--- NOTE | 2022-03-04 21:42 | PC.NURSE ---
Respiratory at bedside
[2022-03-04 21:43] VITALS: PULSE 98; RESP 20; O2SAT 97
[2022-03-04] MEDS: ALBUTEROL SULFATE (*SP) AEROSOL 1 PUFF 4 PUFF INHALATION (21:48)
[2022-03-04 22:15] VITALS: BP 132/87; PULSE 88; RESP 19; O2SAT 100
== END 2022-03-04 22:15 | disposition home or self-care (01) ==
PROVIDERS: Emergency Provider General Practice; PCP Physician Assistant
DX: J45.901 Unspecified asthma with (acute) exacerbation (principal); F41.9 Anxiety disorder, unspecified; D68.2 Hereditary deficiency of other clotting factors; E78.5 Hyperlipidemia, unspecified; E28.2 Polycystic ovarian syndrome; Z86.718 Personal history of other venous thrombosis and embolism; Z79.01 Long term (current) use of anticoagulants; Z87.891 Personal history of nicotine dependence
CPT/HCPCS: 71046; 87637; 99283; A9270; J7512

== ENCOUNTER 2023-01-16 16:34 | Emergency (ER) | payer OTHER, SELFPAY ==
--- NOTE | ~2023-01-16 | CT_ITS ---
EXAMINATION: CT pelvis w con INDICATION: Left hip pain and swelling after fall TECHNIQUE: Computed tomographic images of the pelvis was obtained after the administration of 100 cc of Omnipaque 350 intravenous contrast. The dose-length product (DLP) was 601.59 mGy-cm. Automated exp osure control and iterative reconstruction technique were employed. COMPARISON: None FINDINGS: Bone alignment is normal. There is no fracture. There is a large amount of bruising in the left gluteal fat. There are no pathologically enlarged pelvic lymph nodes. No dilated loops of bowel are evident. IMPRESSION: 1. Left gluteal bruising. Reviewed, dictated and finalized at location F. IMPRESSION: 1. Left gluteal bruising.
[2023-01-16 16:35] VITALS: BP 129/80; PULSE 100; RESP 18; TEMP 36.9; O2SAT 99
--- NOTE | 2023-01-16 16:55 | ED.FALL ---
HPI - Fall General Chief Complaint: Fall Stated Complaint: fall down stairs Time Seen by Provider: 01/16/23 16:55 History of Present Illness HPI Narrative: Patient is a 37-year-old female with history of DVT, on Eliquis here after a fall. She states around 12:00 p.m. this afternoon she was wearing socks and slipped and fell down 5 wooden steps landing on her buttocks. She states she had some immediate pain, specifically in her left buttock. She Initially went to an outside emergency department, waited several hours in the emergency department without being seen and she left and came into this emergency department. She states that she took for ibuprofen in route to this emergency department for pain and swelling. Currently complaining of pain in her left buttock and swelling. She denies any other injuries. She denies falling backwards, hitting her back or head. She denies loss of consciousness. She denies any prodrome of chest pain or shortness of breath. She denies any pain in her upper lower extremities. Related Data Home Medications Medication Instructions Recorded Confirmed escitalopram oxalate 10 mg tablet 10 mg PO DAILY 09/06/19 apixaban 5 mg tablet (Eliquis) 5 mg PO BID 11/07/19 12/18/20 Allergies Allergy/AdvReac Type Severity Reaction Status Date / Time shellfish derived Allergy Severe Swelling Verified 01/16/23 16:35 of Lip/Tongue/Throat shrimp Allergy Severe Anaphylactic Verified 01/16/23 16:35 Shock Penicillins Allergy Unknown Other Verified 01/16/23 16:35 warfarin Allergy Rash Verified 01/16/23 16:35 Review of Systems Review of Systems: All systems reviewed & are unremarkable except as noted in HPI and below PMFSH Past Medical History Medical History (Updated 01/16/23 @ 19:18 by Mago Grace MD) Anxiety Asthma Blood clotting disorder Cholestasis DVT (deep venous thrombosis) Factor V deficiency Gestational diabetes HLD (hyperlipidemia) Miscarriage PCOS (polycystic ovarian syndrome) Ulcer Surgical History Surgical History History of salpingectomy Family History Family History Mother Hypertension Sibling Patient's brother is in good health Social History Social History (Reviewed 11/10/21 @ 10:48 by MARNIE Barahona Smoking status: Former smoker Smoking end date: 04/08/02 Alcohol intake: never Substance use: never Living arrangements: with family Additional living arrangements comments: w/ 3 children Occupation/Education: occupation 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 HEAD: Normocephalic, atraumatic. EYES: PERRLA and EOMI. ENT: Nares clear. Mucous membranes moist. NECK: Supple. No midline C-spine tenderness CHEST: Clear to auscultation. No respiratory distress. No chest wall tenderness HEART: Regular rate and rhythm. Normal peripheral pulses. ABDOMEN: Soft, nontender, nondistended. EXTREMITIES: Normal range of motion. No tenderness in the thoracic or lumbar spine. No back tenderness or evidence of injury. Atraumatic upper and lower extremities. She appears to have isolated tenderness with edema over the left gluteus. No overlying bruising, abrasion, laceration. Non tender pelvis, normal ROM of bilateral hips. SKIN: Warm, dry, no rash. NEURO: No focal deficits. Alert and oriented x3. PSYCH: Normal mood and affect. Course Course Emergency Course: Chart review performed. Patient is here for a fall down wooden stairs. Triage vitals normal. Patient seen evaluated, no acute distress. She appears to have isolated injury to her buttocks with tenderness over the left gluteus and edema/fullness. Concern for possible hematoma given she is on b
[2023-01-16 18:01] LABS: Basophils Absolute Auto 0.1 K/mm3 (0.0-0.1); Basophils Percent Auto 0.5 % (0.2-1.2); Eosinophils Absolute Auto 0.4 K/mm3 (0-0.3); Eosinophils Percent Auto 3.6 % (0-4.4); Hemoglobin 10.6 g/dL (12.0-15.0); Immature Granulocyte Absolute 0.07 K/mm3 (0.00-0.031); Immature Granulocyte Percent A 0.6 % (0-0.5); Lymphocytes Absolute Auto 3.34 K/mm3 (0.9-3.2); Lymphocytes Percent Auto 27.1 % (18.3-44.2); Mean Corpuscular HGB Conc 31.2 g/dl (32-36); Mean Corpuscular Hemoglobin 26.1 pg (26-34); Mean Corpuscular Volume 83.7 fl (80-100); Mean Platelet Volume 8.3 fl (7.4-10.4); Monocytes Absolute Auto 0.7 K/mm3 (0.1-0.6); Monocytes Percent Auto 5.9 % (2.6-8.5); Neutrophils Absolute Auto 7.7 K/mm3 (1.3-6.7); Neutrophils Percent Auto 62.3 % (45.5-73.1); Platelet Count Result 404 k/mm3 (150-375); Red Blood Count 4.06 M/mm3 (4.2-5.4); Red Cell Distribution Width 14.4 % (11.5-14.5); White Blood Count 12.3 K/mm3 (4.5-10.0)
[2023-01-16] MEDS: ACETAMINOPHEN 500 MG TABLET 1000 MG PO (18:04)
[2023-01-16 18:10] LABS: Alanine Aminotransferase 31 U/L (6-35); Albumin Level 4.2 g/dL (3.5-5.1); Alkaline Phosphatase 90 U/L (38-126); Anion Gap 10 mmol/L (8-16); Aspartate Amino Transferase 25 U/L (14-36); Bilirubin,Total 0.5 mg/dL (0.2-1.3); Blood Urea Nitrogen 7 mg/dL (7-17); Carbon Dioxide 26 mmol/L (22-30); Chloride 103 mmol/L (98-107); Estimated CRCL calculation 92 ml/min; Estimated Glomerular Filt Rate > 60; Glucose 118 mg/dL (65-110); Potassium 3.4 mmol/L (3.4-5.0); Sodium 139 mmol/L (137-145)
[2023-01-16 19:46] VITALS: BP 135/79; PULSE 87; RESP 20; TEMP 36.1; O2SAT 98
== END 2023-01-16 19:49 | disposition home or self-care (01) ==
PROVIDERS: Emergency Provider Student in an Organized Health Care Education/Training Program; PCP Physician Assistant
DX: S30.0XXA Contusion of lower back and pelvis, initial encounter (principal); J45.909 Unspecified asthma, uncomplicated; D68.2 Hereditary deficiency of other clotting factors; E28.2 Polycystic ovarian syndrome; E78.5 Hyperlipidemia, unspecified; F41.9 Anxiety disorder, unspecified; Z86.718 Personal history of other venous thrombosis and embolism; Z87.891 Personal history of nicotine dependence; Z90.79 Acquired absence of other genital organ(s); Z79.01 Long term (current) use of anticoagulants; W10.9XXA Fall (on) (from) unspecified stairs and steps, initial encounter
CPT/HCPCS: 36415; 72193; 80053; 85025; 99284; A9270; Q9967